=== PATIENT | male | born 1975 | race Caucasian/White ===

== ENCOUNTER 2019-05-17 17:46 | Emergency (ER) | payer BC ==
[2019-05-17] MEDS: ACETAMINOPHEN 325 MG TAB PO (22:46)
== END 2019-05-18 00:40 | disposition home or self-care (01) ==
LOC: E/R 05-18 00:40 → FTE 17:46
DX: S06.0X9A Concussion with loss of consciousness of unspecified duration, initial encounter (principal); S42.202A Unspecified fracture of upper end of left humerus, initial encounter for closed fracture; R51 Headache; V00.131A Fall from skateboard, initial encounter; Y92.9 Unspecified place or not applicable
CPT/HCPCS: 70450; 73030; 73060; 99284-25